=== PATIENT | male | born 2000 | race African-American/Black ===

== ENCOUNTER 2020-09-03 16:25 | Emergency (ER) | payer OTHER ==
[2020-09-03 16:37] VITALS: BP 138/65
[2020-09-03] MEDS ORDERED: TRANEXAMIC ACID INJ/PF 1,000 MG/10 ML SDV IV ONE (16:44)
--- NOTE | 2020-09-03 16:47 | ER Document Report ---
HPI - HPI Time Seen by Provider: 09/03/20 16:41 Context: Patient is a 20-year-old male, up-to-date on his immunizations who presents the emergency department with an avulsion to the tip his right distal second digit. Patient is left-handed. He was opening a package and and excellently cut hi mself with a knife. The nail is intact. - ROS Systems Reviewed and Negative: Yes All other systems reviewed and negative - CONSTITUTIONAL Constitutional: DENIES: Fever, Chills - CARDIOVASCULAR Cardiovascular: DENIES: Chest pain - RESPIRATORY Respiratory: DENIES: Trouble Breathing, Coughing - MUSCULOSKELETAL Musculoskeletal: REPORTS: Extremity pain - right distal 2nd digit - DERM Skin Color: Normal Notes: finger avulsion Past Medical History - General Information source: Patient - Social History Smoking Status: Unknown if Ever Smoked Family History: Reviewed & Not Pertinent Vertical Provider Document - CONSTITUTIONAL Agree With Documented VS: Yes Exam Limitations: No Limitations General Appearance: No Apparent Distress - HEENT HEENT: Atraumatic, Normocephalic - NECK Neck: Normal Inspection - RESPIRATORY Respiratory: No Respiratory Distress - CARDIOVASCULAR Cardiovascular: Regular Rate, Regular Rhythm Pulses: Normal: Radial - MUSCULOSKELETAL/EXTREMETIES Musculoskeletal/Extremeties: FROM - NEURO Level of Consciousness: Awake, Alert, Appropriate Motor/Sensory: No Motor Deficit, No Sensory Deficit - DERM Notes: finger avulsion; see procedure note Course - Re-evaluation Re-evalutation: 09/03/20 Patient finger avulsion bleeding was controlled with TXA. I also ended up placing Dermabond over the patient avulsion area. Patient tolerated procedure well. Patient is able to extend his digit with no difficulty. Follow-up precautions were given. Verbal discharge instructions were given to the patient. They verbalized understanding. They are stable for discharge. - Vital Signs Vital signs: Temp Pulse Resp BP Pulse Ox 98.7 F 75 16 138/65 H 100 09/03/20 16:36 09/03/20 16:36 09/03/20 16:36 09/03/20 16:36 09/03/20 16:36 Procedures - Laceration/Wound Repair Left Distal 2nd digit Wound length (cm): 1.5 Wound's Depth, Shape: Superficial Wound Repaired With: Dermabond, Other - TXA Post-procedure NV exam normal: Yes Complications: No Hands front picture: 1 - finger avulsion Discharge - Discharge Clinical Impression: Finger avulsion Qualifiers: Encounter type: initial encounter Qualified Code(s): S61.209A - Unspecified open wound of unspecified finger without damage to nail, initial encounter Condition: Stable Disposition: HOME, SELF-CARE Additional Instructions: The wound has been closed with glue. Please do not pick at the at the wound. Do not cover it with any kind of antibiotic ointment as this can cause the glue to loosen. Return immediately if you develop spreading redness around the wound, pus from the wound, worsening pain, or a fever of >100.4. Keep the area clean and dry.
== END 2020-09-03 18:45 | disposition home or self-care (01) ==
LOC: ER 16:25
DX: S61.210A Laceration without foreign body of right index finger without damage to nail, initial encounter (principal); W26.0XXA Contact with knife, initial encounter
CPT/HCPCS: 99284; 96374; 12001; J3490